=== PATIENT | female | born 1985 | race Hispanic/Latino ===

== ENCOUNTER → 2019-10-21 | Day surgery (SDC) | payer OTHER ==
[~2019-10-21] MED LIST: ACETAMINOPHEN/CODEINE 300MG - 30MG TAB ONE; BUPIVACAINE 0.25% 30ML SDV INJ ONE; CEFAZOLIN SOD 1 GM/NS 50ML 100 ML IV ONE; DEXAMETHASONE SOD PHOS INJ 4 MG/ML VIAL ONE; FENTANYL CITRATE/PF 100MCG/2 ML INJ ONE; GLYCOPYRROLATE INJ 0.2 MG/ML VIAL ONE; KETAMINE HCL INJ 50 MG/ML 10 ML VIAL ONE; LOSARTAN POTASS25 MG PO; MIDAZOLAM HCL 2 MG/2 ML VIAL ONE; NEOSTIGMINE 1 MG/ML 10ML VIAL ONE; ONDANSETRON HCL INJ 2MG/ML 2ML 2 MG/ML VIAL ONE; PROPOFOL IV EMULSION 10 MG/ML 20 ML VIAL ONE; ROCURONIUM BROMIDE 10 MG/ML 5ML VIAL ONE; SEVOFLURANE INHAL SOLN 250 ML PEN BTL ONE
--- NOTE | 2019-10-21 12:08 | Operative Report ---
DATE OF PROCEDURE: 10/21/2019 SURGEON: Jj Suarez MD PREOPERATIVE DIAGNOSIS: Chronic cholecystitis with calculus. POSTOPERATIVE DIAGNOSIS: Chronic cholecystitis with calculus. PREOPERATIVE INDICATION: Treat disease, prevent biliary related complications. PROCEDURE: Laparoscopic cholecystectomy. ANESTHESIA: General. LINING IRONER: Chace Beavers, instructor adjunct surgical technician (needed due to complexity of case). FLUIDS: As per anesthesia. ESTIMATED BLOOD LOSS: 20 mL. DRAINS: None. COMPLICATIONS: None. SPECIMENS: Gallbladder. GRAFTS: None. FINDINGS: Chronic gallbladder wall inflammation and gallbladder wall thickening. PROCEDURE IN DETAIL: The patient was brought to the operating room and was intubated under general endotracheal anesthesia. She was sterilely prepped and draped in the usual fashion. A preprocedure pause was performed identifying the patient, use of perioperative antibiotics, intended procedure, and staff surgeon. Access was gained via a 5 mm left subcostal incision using a Veress needle. The abdomen was insufflated. Three additional trocars were placed in standard positions. The gallbladder was grasped at the fundus and retracted cephalad and to the right of liver. I then incised the peritoneal lining over the gallbladder and expose the cystic duct and obtained a critical view of dissection. The cystic duct was clipped twice on the stay side, once on the specimen side and divided. Multiple branches of the cystic artery were divided, were coagulated with the J-hook electrocautery. The gallbladder was then excised off the gallbladder fossa using the electrocautery device and was removed through the periumbilical port site with EndoCatch bag. There was a minimal spillage of bile from the gallbladder during the dissection, which was suctioned off. I then achieved hemostasis on the gallbladder fossa with electrocautery and suction irrigated the peritoneal cavity dry. I then closed the large port site with 0 Vicryl suture using the Del Sanchez technique in an interrupted fashion. We closed incision sites with 4-0 Monocryl suture in subcuticular fashion. Dermabond dressings were applied. A 0.25% bupivacaine was used at both the preperitoneal incision sites. The patient tolerated the procedure well. Type of wound is type 3, contaminated. Jj Suarez MD [facility] [place]/[facility] /[id number]
[2019-10-21 12:15] VITALS: BP 100/60
--- OUTSIDE RECORDS SUMMARY | 2019-10-25 12:47 | XMS REPORT ---
Author Author [facility] Address Unknown Phone Unavailable Care Team Providers Care Driver Trainee Name Role Phone Unavailable Unavailable Problems This patient has no known problems. Allergies, Adverse Reactions, Alerts This patient has no known allergies or adverse reactions. Medications This patient has no known medications.
== END | disposition home or self-care (01) ==
LOC: OR 08:22
PROVIDERS: ATTEND Surgery
DX: K80.10 Calculus of gallbladder with chronic cholecystitis without obstruction (principal); K58.9 Irritable bowel syndrome, unspecified; I10 Essential (primary) hypertension; Z68.30 Body mass index [BMI] 30.0-30.9, adult
CPT/HCPCS: 47562; 81025; 88304; J0690; J1100; J2250; J2405; J2704; J2710; J3010